=== PATIENT | female | born 1945 | race Caucasian/White ===

== ENCOUNTER → 2018-12-26 11:25 | Outpatient (CLI) | payer MEDICARE, OTHER, SELFPAY | PROVIDERS: Family Provider Family Medicine; PCP Family Medicine; Referring Provider Family Medicine; Visit Provider Family Medicine | DX: R94.31 Abnormal electrocardiogram [ECG] [EKG] (principal) ==

== ENCOUNTER → 2019-01-12 13:24 | Outpatient (CLI) | payer MEDICARE, OTHER, SELFPAY ==
--- NOTE | 2019-01-12 13:30 | STEWCON_ITS ---
Reason For Study: Abnormal EKG Stress Results Protocol: Jose Elias Protocol Maximum Predicted HR: 149 bpm Target HR: 127 bpm % Maximum Predicted HR: 110 % DurationHeart Rate Stage (mm:ss) (bpm) BP Comment Baseline 74 128/72No Chest Pain; 3 ML Diluted Definity Given Jose Elias Protocol Stage I 3:00 112 148/70No Chest Pain Jose Elias Protocol Stage II 3:00 129 150/72No Chest Pain Jose Elias Protocol Stage III 0:14 164 / No Chest Pain; Mild Dyspnea Recovery 97 122/70No Chest Pain Stress Duration: 6:14 mm:ss Maximum Stress HR: 164 bpm METS: 7 Baseline Echocardiogram Findings The estimated ejection fraction is 60 %. Stress Echo Wall motion Data Resting WM Intermediate WM Stress WM Resting Wall Motion Wall Motion Stress No regional wall motion No regional wall motion abnormalities noted. abnormalities noted. EKG Data Normal baseline electrocardiogram. No ischemic changes. Symptoms with Stress The patient experinced no chest pain with exercise . Interpretation Summary The estimated ejection fraction is 60 %. Stress echo is negative exercise induced CP, or EKG or echocardiographic changes of ischemia. Contrast injection was performed. Ordering Physician: Mee Morales Referring Physician: Pau Ruffin MD Performed By: Augustus Merchant RCS
== END ==
PROVIDERS: Family Provider Family Medicine; PCP Family Medicine; Referring Provider Family Medicine; Visit Provider Family Medicine
DX: R94.31 Abnormal electrocardiogram [ECG] [EKG] (principal)
CPT/HCPCS: 93017; 93350; Q9957; A4216; C8928